=== PATIENT | female | born 1960 | race Caucasian/White ===

== ENCOUNTER 2017-12-31 12:25 | Outpatient (CLI) | payer OTHER ==
[2017-12-31 14:38] LABS: Hemoglobin 11.9 g/dL (12.0-16.0); Mean Corpuscular HGB CONC 33.5 g/dL (32.0-36.0); Mean Corpuscular Hemoglobin 28.2 pg (27.0-31.0); Mean Corpuscular Volume 84.2 fl (81.0-99.0); Mean Platelet Volume 7.5 fL (7.4-10.4); Platelet Count 314 thou/uL (130-400); Red Blood Cell (RBC) Count 4.22 mill/uL (4.20-5.40)
[2017-12-31 14:58] LABS: Anion Gap 13 mmol/L (10-20); BUN (Urea Nitrogen) 23 mg/dL (9.8-20.1); Calc. Creatinine Clearance 0 mL/min (70-130); Calcium 8.9 mg/dL (7.8-10.44); Carbon Dioxide 25 mmol/L (22-29); Chloride 100 mmol/L (98-107); Estimated GFR-MDRD 33; Glucose 347 mg/dL (70-105); Potassium 4.4 mmol/L (3.5-5.1); Sodium 134 mmol/L (136-145)
--- NOTE | 2017-12-31 20:07 | EKG ---
Test Reason : Blood Pressure : / mmHG Vent. Rate : 087 BPM Atrial Rate : 087 BPM P-R Int : 156 ms QRS Dur : 092 ms QT Int : 386 ms P-R-T Axes : 071 -15 102 degrees QTc Int : 464 ms Normal sinus rhythm Inferior infarct (cited on or before 31-DEC-2017) Possible Anterior infarct , age undetermined Abnormal ECG When compared with ECG of 11-AUG-2016 14:53, Borderline criteria for Anterior infarct are now Present Confirmed by MIKE LYONS, DR. Sheikh ([id number]) on 12/31/2017 8:06:49 PM Referred By: REUBEN Confirmed By:DR. Kori MCKEON MD
== END 2017-12-31 12:26 | disposition home or self-care (01) ==
LOC: LABBT 12:25
PROVIDERS: ATTEND Obstetrics & Gynecology
DX: Z01.812 Encounter for preprocedural laboratory examination (principal); A63.0 Anogenital (venereal) warts
CPT/HCPCS: 80048; 85027; 86850; 86900; 86901; 93005; 93010

== ENCOUNTER 2018-01-16 12:50 | Emergency (ER) | payer OTHER | END 2018-01-16 13:34 | disposition left against medical advice (07) | LOC: ERS 12:50 | DX: Z53.21 Procedure and treatment not carried out due to patient leaving prior to being seen by health care provider (principal) ==

== ENCOUNTER 2018-01-22 01:10 | Emergency (ER) | payer OTHER ==
[2018-01-22 01:54] LABS: #Basophils 0.1 thou/uL (0.0-0.2); #Eosinphils 0.2 thou/uL (0.0-0.7); #Lymphocytes 2.3 thou/uL (1.20-3.40); #Monocytes 0.9 thou/uL (0.11-0.59); #Neutrophils 8.3 thou/uL (1.40-6.50); %Basophils 0.6 % (0.0-1.0); %Eosinophils 1.8 % (0.0-10.0); %Lymphocytes 19.3 % (21.0-51.0); %Monocytes 7.2 % (0.0-10.0); %Neutrophils 71.1 % (42.0-75.0); Hemoglobin 12.1 g/dL (12.0-16.0); Mean Corpuscular Hemoglobin 28.6 pg (27.0-31.0); Mean Corpuscular Volume 84.2 fl (81.0-99.0); Mean Platelet Volume 7.2 fL (7.4-10.4); Platelet Count 314 thou/uL (130-400); Red Blood Cell (RBC) Count 4.21 mill/uL (4.20-5.40); White Blood Cell (WBC) Count 11.7 thou/uL (4.8-10.8)
[2018-01-22 02:12] LABS: ALT (SGPT) 9 U/L (8-55); AST (SGOT) 8 U/L (5-34); Albumin 3.3 g/dL (3.5-5.0); Alkaline Phosphatase 133 U/L (40-150); Anion Gap 10 mmol/L (10-20); BUN (Urea Nitrogen) 32 mg/dL (9.8-20.1); Bilirubin, Total 0.2 mg/dL (0.2-1.2); Calc. Creatinine Clearance 0 mL/min (70-130); Calcium 9.3 mg/dL (7.8-10.44); Carbon Dioxide 27 mmol/L (22-29); Chloride 101 mmol/L (98-107); Estimated GFR-MDRD 41; Globulin 3.5 g/dL (2.4-3.5); Glucose 329 mg/dL (70-105); Potassium 4.4 mmol/L (3.5-5.1); Protein, Total 6.8 g/dL (6.0-8.3); Sodium 134 mmol/L (136-145)
[2018-01-22 04:34] LABS: CKMB 2.4 ng/mL (0-6.6); Troponin I Less than 0.010 ng/mL (< 0.028)
[2018-01-22] MEDS ORDERED: HYDROcodone/Acetaminophen 5/325 mg Tablet ONE (05:04)
[2018-01-22] MEDS ORDERED: Methocarbamol 500 MG TAB PO SCH (05:15)
== END 2018-01-22 05:56 | disposition home or self-care (01) ==
LOC: ERS 01:10
DX: E11.65 Type 2 diabetes mellitus with hyperglycemia (principal); E11.40 Type 2 diabetes mellitus with diabetic neuropathy, unspecified; K58.9 Irritable bowel syndrome, unspecified; E78.5 Hyperlipidemia, unspecified; I10 Essential (primary) hypertension; J44.9 Chronic obstructive pulmonary disease, unspecified; F41.9 Anxiety disorder, unspecified; F32.9 Major depressive disorder, single episode, unspecified; F17.210 Nicotine dependence, cigarettes, uncomplicated; Z79.4 Long term (current) use of insulin; Z79.891 Long term (current) use of opiate analgesic; Z79.899 Other long term (current) drug therapy
CPT/HCPCS: 36415; 36416; 80053; 82010; 82553; 84484; 85025; 85610; 85730; 93005; 96360; 96361; 99406

== ENCOUNTER 2018-01-22 15:10 | Outpatient (CLI) | payer OTHER ==
[2018-01-22 16:39] LABS: PTT 32.6 SEC (22.9-36.1); Prothrombin Time 13.6 SEC (12.0-14.7)
[2018-01-22 17:02] LABS: ALT (SGPT) 8 U/L (8-55); AST (SGOT) 9 U/L (5-34); Albumin 3.2 g/dL (3.5-5.0); Alkaline Phosphatase 116 U/L (40-150); Anion Gap 11 mmol/L (10-20); BUN (Urea Nitrogen) 24 mg/dL (9.8-20.1); Bilirubin, Total 0.2 mg/dL (0.2-1.2); Calc. Creatinine Clearance 0 mL/min (70-130); Calcium 8.9 mg/dL (7.8-10.44); Carbon Dioxide 24 mmol/L (22-29); Chloride 105 mmol/L (98-107); Estimated GFR-MDRD 58; Globulin 3.4 g/dL (2.4-3.5); Glucose 105 mg/dL (70-105); Potassium 4.1 mmol/L (3.5-5.1); Protein, Total 6.6 g/dL (6.0-8.3); Sodium 136 mmol/L (136-145)
== END 2018-01-22 15:11 | disposition home or self-care (01) ==
LOC: LABBT 15:10
PROVIDERS: ATTEND Internal Medicine Cardiovascular Disease
DX: Z01.818 Encounter for other preprocedural examination (principal); R94.39 Abnormal result of other cardiovascular function study
CPT/HCPCS: 85610; 85730

== ENCOUNTER 2018-01-23 05:50 | Day surgery (SDC) | payer OTHER ==
[2018-01-23] MEDS ORDERED: diphenhydrAMINE 50 MG/ML VIAL ONE (06:31)
[2018-01-23] MEDS ORDERED: diphenhydrAMINE 25 MG CAP ONE ×2 (06:32→06:33)
[2018-01-23] MEDS ORDERED: Lidocaine 1% (PF) 30 ML VIAL ONE (06:33)
[2018-01-23 06:51] LABS: Cardiac Risk 7.1 (Less than 4.5)
[2018-01-23] MEDS ORDERED: Midazolam HCl 2 mg/2 ml Vial ONE ×2 (07:09→07:29)
[2018-01-23] MEDS ORDERED: hydrALAZINE 20 MG/ML VIAL ONE (07:29)
[2018-01-23] MEDS ORDERED: Acetaminophen/Codeine 30-300mg Tablet ONE ×2 (08:21→08:22)
[2018-01-23] MEDS ORDERED: Iopamidol 370 76% 100 ML VIAL ONE (08:51)
--- NOTE | 2018-01-23 10:08 | DIS ---
INDICATION: She was seen in the outpatient facility today to undergo cardiac catheterization. DIAGNOSES: Include coronary artery disease, status post bypass surgery; history of tobacco abuse; hi story of chronic pain syndrome; history of hypertension. DISCHARGE DIAGNOSES: Include coronary artery disease, status post bypass surgery; history of tobacco abuse; history of chronic pain syndrome; history of hypertension. PROCEDURES IN THE HOSPITAL: Included cardiac catheterization, left ventriculogram, coronary arteriog nathaniel, saphenous vein graft evaluation, HERRERA graft evaluation. Followup will be with me in the office or my nurse practitioner in the next 1-2 months. She will con tinue her discharge medications, which will include nitroglycerin as a new p.r.n. medication, subling ual tablets 1 every 5 minutes p.r.n. for pain, cyclobenzaprine 10 mg t.i.d., Tylenol with Codeine as needed, Protonix 20 mg daily, Lexapro 20 mg a half a tablet a day, Levemir 100 units per mL subcutane ous 35 units b.i.d., and Novolin 100 units per mL subcutaneous injections as indicated by the blood s ugar, Tylenol as needed, albuterol sulfate inhaler 2 puffs every 4 hours as well as Proventil 2 puffs b.i.d., Fosamax 70 mg once a week, aspirin 81 mg a day, Flexeril as needed. We will also consider Deon roth due to her diffuse coronary artery disease. She will continue her aspirin at this time. She i s not on statin medications. I will discuss this also with the patient as to why she is no longer ta ernie statins. We would suggest she take at least Lipitor or some medication due to severe vascular d isease. Also, she was highly encouraged to stop smoking. HOSPITAL COURSE: This is a very unfortunate 57-year-old female, who has smoked for many years and morillo s undergone bypass surgery in 2015. She presented again with chest pain. Stress test was abnormal. She was advised to undergo cardiac catheterization. She was taken to cardiac catheterization lab, p repped and draped in sterile fashion, using right femoral artery approach, and a #4-Indonesian introducer sheath was placed into the right femoral artery using #4 Indonesian JL4 catheter was advanced to the lef t main. Coronary shows a left main retrieving significant disease. Left anterior descending was 100 % occluded after takeoff of a diagonal branch. The left circumflex is also occluded just shortly aft er takeoff from the bifurcation. The catheter was then removed. There is actually a very small OM b ranch that arises from the circumflex and then is 100% occluded. This obtuse marginal branch is less than 1 mm in diameter. Catheter was then removed and was placed into the [place] right coronary, whi ch shows proximal 75% stenosis just beyond the ostium and then 100% occluded just after the takeoff o f a small right ventricular branch. The catheter was then placed into the saphenous vein graft to th e left circumflex, obtuse marginal branch. This remains patent. There is no evidence of stenosis in the saphenous vein graft. There is filling of the distal obtuse marginal branch without evidence of stenosis distally. There was also fills retrograde backed up into the distal left circumflex. Thes e vessels are less than 2 mm in diameter. The catheter was then removed and was placed into the left internal mammary artery, which shows a patent left internal mammary into the very distal left anteri or descending artery, just beyond the anastomotic site. The left anterior descending artery has diff use disease and has a 50% stenosis just at the anastomotic site and shortened for about 8 mm in lengt h and also the left anterior descending artery fills retrograde slightly and then is 100% occluded. The vessel is less than 1 mm in diameter. There are some very small septal branches that arise from the distal left anterior descending artery that are also filling by this retrograde filling of the LI MA to the left anterior descending artery and capped. Then, using a multipurpose catheter was advanc ed to the ostium of the saphenous vein graft to the right coronary, which shows a patent saphenous ve in graft without stenosis to the distal posterior descending artery of the right coronary artery. Th is shows a patent posterior descending artery; however, this is also less than 2 mm in diameter. Cat heter was then removed, and using a 4-Indonesian pigtail catheter, this had been advanced to the left leanne tricle. This shows a well-preserved left ventricular systolic function. Ejection fraction was more than 70%-75%. This was then removed. The patient tolerated the procedure well. She did require ev te a bit of Versed 4 mg and also 4 mg of morphine and still continued to have some discomfort, compla ining of back pain. Otherwise, she did very well during the procedure, and her blood pressure remain s stable. At this time, we will continue medical management. The vessels are too small to intervene upon as noted in this dictation. She was strongly encouraged to stop smoking. Otherwise, there is very little that can be done with the small vessels even in the future. She is probably not a candid ate for redo bypass surgery nor is she a candidate for intervention at this time. We will continue m edical management in this unfortunate patient. If she remains stable, she will be discharged home in the next 4-5 hours.
== END 2018-01-23 11:06 | disposition home or self-care (01) ==
LOC: CCL 05:50
PROVIDERS: ATTEND Internal Medicine Cardiovascular Disease
PROC: B2131ZZ Fluoroscopy of Multiple Coronary Artery Bypass Grafts using Low Osmolar Contrast (ICD-10-PCS; principal; 2018-01-23)
PROC: 4A023N7 Measurement of Cardiac Sampling and Pressure, Left Heart, Percutaneous Approach (ICD-10-PCS; principal; 2018-01-23)
DX: I25.10 Atherosclerotic heart disease of native coronary artery without angina pectoris (principal); G89.4 Chronic pain syndrome; I10 Essential (primary) hypertension; E11.9 Type 2 diabetes mellitus without complications; H54.7 Unspecified visual loss; Z79.4 Long term (current) use of insulin; Z79.82 Long term (current) use of aspirin; Z79.83 Long term (current) use of bisphosphonates; Z79.899 Other long term (current) drug therapy; Z91.041 Radiographic dye allergy status; Z88.5 Allergy status to narcotic agent; Z91.048 Other nonmedicinal substance allergy status; Z95.1 Presence of aortocoronary bypass graft; Z87.891 Personal history of nicotine dependence
CPT/HCPCS: 36416; 80061; 93459; 99152; 99153; C1769; J0360; J1200; J1644; J2001; J2250; J2270

== ENCOUNTER 2018-02-18 15:51 | Outpatient (CLI) | payer OTHER ==
[2018-02-18 17:06] LABS: Hemoglobin 11.3 g/dL (12.0-16.0); Mean Corpuscular HGB CONC 33.1 g/dL (32.0-36.0); Mean Corpuscular Hemoglobin 28.5 pg (27.0-31.0); Mean Corpuscular Volume 86.1 fl (81.0-99.0); Mean Platelet Volume 7.1 fL (7.4-10.4); Platelet Count 302 thou/uL (130-400); RBC Distribution Width 15.3 % (11.5-14.5); Red Blood Cell (RBC) Count 3.95 mill/uL (4.20-5.40); White Blood Cell (WBC) Count 8.7 thou/uL (4.8-10.8)
== END 2018-02-18 15:52 | disposition home or self-care (01) ==
LOC: LABBT 15:51
PROVIDERS: ATTEND Obstetrics & Gynecology
DX: Z01.812 Encounter for preprocedural laboratory examination (principal); A63.0 Anogenital (venereal) warts
CPT/HCPCS: 85027

== ENCOUNTER 2018-02-19 08:00 | Day surgery (SDC) | payer OTHER ==
[2018-02-18 16:11] VITALS: BMI 28.3
--- NOTE | 2018-02-18 16:55 | HP ---
She is scheduled for outpatient surgery on 02/19/2018. HISTORY OF PRESENT ILLNESS: Ms. Vera is a 57-year-old white female with a long history of insulin- dependent diabetes with subsequent complications including blindness and coronary artery disease and has been plagued with significant vulvar condyloma. She has been initiated on Aldara therapy, which has helped with the smaller condylomatous regions, but still has some very large ones in the perineal areas that have not responded well to the Aldara therapy. These become irritated and painful at keegan es. She does not have home health that has been helping her to apply the Aldara as directed, but sti ll has significant condylomatous disease in the perineal area. PAST MEDICAL HISTORY: Longstanding insulin-dependent diabetes. The patient has been cardiac cleara nce recently with her casino manager, Dr. Day PAST SURGICAL HISTORY: Tubal ligation and cardiac catheterization. OBSTETRICAL HISTORY: G7, P4, A3, all vaginal deliveries. SOCIAL HISTORY: One-pack per day smoker. Denies alcohol use. She is disabled from her blindness an d chronic diabetes. ALLERGIES: No known drug allergies. FAMILY HISTORY: Significant for hyperlipidemia in her mother and father and diabetes in her mother a nd father. CURRENT MEDICATIONS: Aldara and Levemir for her diabetes. PHYSICAL EXAMINATION: VITAL SIGNS: Show blood pressure was 114/60, pulse 90, respirations 18, height 63 inches, weight 164 , BMI of 29. ABDOMINAL EXAM: Abdomen is soft and nontender. PELVIC EXAM: There is a large condyloma noted in the perineal area small to least condylomatous taylor ges in the posterior introitus that are nonfriable. No ulcerations noted. ASSESSMENT: Complicated vulvar condyloma, minimal responsiveness to Aldara therapy, insulin-dependen t diabetes. PLAN: Scheduled for excision of the large condyloma and to continue on Aldara to smaller perineal ar eas after surgery in hopes to control the recurrence of these HPV-associated Viral Warts. We will se nd the biopsy specimens off for pathology to rule out any verrucous carcinoma changes. Surgery is sc heduled for 02/19/2018.
[2018-02-19] MEDS ORDERED: CEFAZOLIN/Water 2 GM/20 ML SYRINGE ONE (09:12)
[2018-02-19] MEDS ORDERED: Lidocaine 2% Jelly 5 ML TUBE ONE (09:27)
[2018-02-19] MEDS ORDERED: Bupivacaine/Epinephrine 0.25% 30 ML VIAL ONE (09:27)
[2018-02-19] MEDS ORDERED: Fentanyl 100 MCG/2 ML VIAL ONE ×2 (09:33→11:28)
[2018-02-19] MEDS ORDERED: Midazolam HCl 2 mg/2 ml Vial ONE ×2 (09:33→09:42)
[2018-02-19] MEDS ORDERED: Ondansetron HCl/PF 4 MG/2 ML Vial ONE ×2 (09:33→13:42)
[2018-02-19] MEDS ORDERED: Bupivacaine HCl 0.5%/Epinephrine 1:200,000/PF 30 ml Vial ONE (09:34)
[2018-02-19] MEDS ORDERED: Lidocaine 1% w/Epinephrine 1:200K 30 ML VIAL ONE (09:35)
[2018-02-19] MEDS ORDERED: Bacitracin Zinc Ointment 30 gm TUBE ONE (10:47)
[2018-02-19] MEDS ORDERED: Acetaminophen/Codeine 30-300mg Tablet ONE (12:12)
[2018-02-19] MEDS ORDERED: Lidocaine 1% PF 5 ML VIAL ONE (13:42)
[2018-02-19] MEDS ORDERED: PROPOFOL 200 MG/20 ML VIAL ONE (13:42)
[2018-02-19] MEDS ORDERED: PHENYLEPHRINE-NS 100 MCG/ML 10 ML SYRINGE ONE (13:42)
--- NOTE | 2018-02-19 19:19 | OP ---
DATE OF PROCEDURE: 02/19/2018 PREOPERATIVE DIAGNOSIS: A 57-year-old white female with longstanding insulin-dependent diabetic with large cervical condyloma of the perineum unresponsive to Aldara therapy. POSTOPERATIVE DIAGNOSIS: A 57-year-old white female with longstanding insulin-dependent diabetic wit h large cervical condyloma of the perineum unresponsive to Aldara therapy. PROCEDURE PERFORMED: Wide local excision of multiple large verruca. SURGEON: Ligia Nichole M.D. ANESTHESIA: General and local anesthetic. FINDINGS: Multiple condylomatous lesions that were most predominantly a large one at 7:00, 10:00, 12 :00, and 01:00 of the perineum. No intraanal involvement noted. Minimal smaller condyloma noted in the vaginal introitus, which were cautery ablated. PATHOLOGY: Each specimen sent labeled 7:00, 10:00, 12:00 and 1:00 position for pathologic diagnosis. DISPOSITION: To recovery room, then plan to discharge home. Ancef was given for antibiotics. DESCRIPTION OF OPERATIVE PROCEDURE: The patient previously received informed consent. She was taken back to the operating room where she received a general endotracheal anesthetic agent clear. She wa s placed in dorsal lithotomy position with use of Moo stirrups and prepped in perineal, vaginal and vulvar area. In and out catheterization of the bladder was performed about 20 mL of clear urine wit h good strain. At this time, 20 mL of 0.5% Marcaine with epinephrine was infiltrated under condyloma tous lesions. The 07:00 condyloma lesion was then grasped with pickups with teeth. Then, #15 blade was utilized to make an elliptical excision, skinning off the verruca lesion and sent for final patho logy. The area was cauterized at the base and any surrounding small condyloma were cauterized with 2 30 estes of Bovie cautery. The defect was closed with interrupted [id number] sutures of 2-0 Josh ryl and then interrupted bvzpaz-[id number] suture of Vicryl was then utilized to close the perineal tis paulo defect securing hemostasis. This was then repeated in likewise fashion at the 11:00 verrucous le martha and was again excised and cauterized for some hemostasis and the deep stitches of interrupted 2- 0 Vicryl were placed closing the tissue defect along with mucosal closure with interrupted figure-of- eight sutures of 2-0 Vicryl. A 12:00 verruca was also removed in similar fashion and closed in simil ar technique. Hemostasis again was achieved. The 1 o'clock verruca was then again excised with 15 b lade cauterizing the base and then closed the deep tissue stitches with interrupted 2-0 Vicryl and th en interrupted 2-0 Vicryl figure-of-8 sutures for the mucosal closure. Any areas of small condylomat ous that were cauterized with minimal need for this after the larger verruca masses were removed. He mostasis was achieved. A rectal exam was performed. There was no evidence of any suture placement w ithin this area and the perianal area was not involved with the suture ligation. Bacitracin zinc oin tment will be placed over the incision sites. The patient was awakened from anesthesia and transferr ed to the recovery room and plan for discharge today with follow up in 7-10 days for incision checks.
--- NOTE | 2018-03-28 09:07 | PQF ---
MOHAMUD Muller [place] POST DISCHARGE CLINICAL DOCUMENTATION IMPROVEMENT CLARIFICATION FORM Todays Date: 02/26/18 Patients Name CECILIA MARTINEZ Admit Date 02/19/18 Disch Date 02/19/18 Associate Professor Of Forestry Name RUBENISABELA MORRISANUELLE BORJAS Email: [email or web address] Cell: [phone] Present Clinical Indicators - Signs / Symptoms Results and Location in Medical Record [ ] Documentation of: [ ] [ ] Documentation of: [ ] [ ] Documentation of: [ ] [ ] Documentation of: [ ] [ ] Risks [ ] [ ] [ ] Treatment [ ] Perineal lesion excision, condyloma/ squamous carcinoma Please specify the size of the lesion with the margin excised in the operative report [ ] [ ] Dr. Ligia Nichole The documentation in this patients record requires clarification to ensure coding compliance and accuracy. Check the appropriate box and include in your discharge summary. [ ] [ ] [ ] [ ] Please check this box if this does not apply to this patient [ ] Unable to determine [ ] Other diagnosis: Review the following information and exercise your independent professional judgment in responding to the clarification. Based upon the clinical findings, risk factors, and treatment, please clarify if you are treating one of the above probable or suspected diagnoses. Physician Signature: Date Time MTDD
== END 2018-02-19 13:16 | disposition home or self-care (01) ==
LOC: SDC 08:00
PROVIDERS: ATTEND Obstetrics & Gynecology
DX: C44.520 Squamous cell carcinoma of anal skin (principal); A63.0 Anogenital (venereal) warts; I25.10 Atherosclerotic heart disease of native coronary artery without angina pectoris; E10.39 Type 1 diabetes mellitus with other diabetic ophthalmic complication; H54.7 Unspecified visual loss; F17.210 Nicotine dependence, cigarettes, uncomplicated; Z79.899 Other long term (current) drug therapy; Z88.5 Allergy status to narcotic agent; Z91.041 Radiographic dye allergy status
CPT/HCPCS: 36416; 85027; 88305; J0670; J2001; J2250; J2405; J2704; J3010

== ENCOUNTER 2018-02-26 16:27 | Inpatient (IN) | payer OTHER ==
[2018-02-26] MEDS ORDERED: Morphine 5 MG/ML SYRINGE SLOW IVP PRN (17:41)
[2018-02-26] MEDS ORDERED: Acetaminophen 500 MG TAB PO PRN (17:42)
[2018-02-26] MEDS: Morphine 5 MG/ML SYRINGE SLOW IVP PRN ×2 (17:45→20:25)
[2018-02-26 17:53] LABS: Anisocytosis SLIGHT = 6-15 cells (100X) (0-5/hpf); Eosinophils 2 % (0-10); Hemoglobin 11.1 g/dL (12.0-16.0); Lymphocytes 21 % (21-51); MDiff Complete? YES; Mean Corpuscular HGB CONC 33.3 g/dL (32.0-36.0); Mean Corpuscular Hemoglobin 28.2 pg (27.0-31.0); Mean Corpuscular Volume 84.5 fl (81.0-99.0); Mean Platelet Volume 7.6 fL (7.4-10.4); Monocytes 5 % (0-10); Neutrophil 72 % (42-75); PLT Morphology Comment Appears Adequate; Platelet Count 252 thou/uL (130-400); RBC Distribution Width 15.4 % (11.5-14.5); Red Blood Cell (RBC) Count 3.95 mill/uL (4.20-5.40); White Blood Cell (WBC) Count 9.1 thou/uL (4.8-10.8)
[2018-02-26 17:56] LABS: ALT (SGPT) 9 U/L (8-55); AST (SGOT) 16 U/L (5-34); Alkaline Phosphatase 126 U/L (40-150); Anion Gap 10 mmol/L (10-20); BUN (Urea Nitrogen) 30 mg/dL (9.8-20.1); Bilirubin, Total 0.2 mg/dL (0.2-1.2); Calc. Creatinine Clearance 54 mL/min (70-130); Calcium 8.6 mg/dL (7.8-10.44); Carbon Dioxide 25 mmol/L (22-29); Chloride 105 mmol/L (98-107); Estimated GFR-MDRD 40; Globulin 3.5 g/dL (2.4-3.5); Glucose 200 mg/dL (70-105); Potassium 4.6 mmol/L (3.5-5.1); Protein, Total 6.5 g/dL (6.0-8.3); Sodium 135 mmol/L (136-145)
[2018-02-26] MEDS ORDERED: Acetaminophen/Codeine 30-300mg Tablet PO PRN (18:29)
[2018-02-26] MEDS ORDERED: PROVENTIL INHALER 6.7 G (200 INHALATIONS) INH PRN (18:30)
[2018-02-26] MEDS: Piperacillin/Tazobactam 3.375 GM in Sodium Chloride 0.9% 100 ML IVPB SCH (18:46)
[2018-02-26] MEDS ORDERED: HumaLOG 300 UNITS/3 ML VIAL SC PRN (20:04)
[2018-02-26] MEDS: Gabapentin 300 MG CAP PO SCH (20:24)
[2018-02-26] MEDS: Bupropion 150 MG SR TAB PO SCH (20:24)
[2018-02-26] MEDS: hydrOXYzine 25 MG TAB PO SCH (20:31)
[2018-02-26] MEDS: Acetaminophen/Codeine 30-300mg Tablet PO PRN (20:31)
[2018-02-26] MEDS: Insulin Glargine 40 UNITS in Pre-Filled Syringe SC SCH (20:33)
[2018-02-26] MEDS: Clindamycin/D5W 900 MG in Premix Bag 1 BAG IVPB SCH (20:42)
[2018-02-26] MEDS: Atorvastatin Calcium 10 MG TAB PO SCH (20:42)
--- NOTE | 2018-02-26 22:12 | HP ---
CHIEF COMPLAINT: She is being admitted for vulvar cellulitis, status post partial lobectomy for vulv ar dysplasia and condyloma. HISTORY OF PRESENT ILLNESS: Ms. Vera is a 57-year-old white female with longstanding history of in sulin-dependent diabetes with secondary complications including blindness and coronary artery disease . She is also a tobacco smoker for a long time. She was recently treated with excision of a large c ondyloma of the perineum approximately postop day #7 with wide local excisions of the vulvar lesions. Pathology showed some microscopic invasion and a large condyloma at 7 and 10 o'clock on the perineu m and then high-grade dysplasia with positive margins with residual disease noted also at 12 and 1 o' clock. The patient has been at home and has been using as recommended sitz baths and Dermoplast for pain and Tylenol No. 3. She was reporting increasing perineal pain over the past 2 days. There is somewhat question on her ability to care for herself due to her blindness and whether the sitz baths have been adequate. For the increasing pain, she was seen in my office today. She states that Tylenol No. 3 is not helping, it is difficult for her to walk due to the pain. She is also reporting more increase d hyperglycemia regards to her insulin control. PAST SURGICAL HISTORY: Multiple D&Cs, tubal ligation in 1989, cholecystectomy in 1996, oral surgerie s, basal cell carcinoma removed from the nose, triple bypass CABG [place] [address] Lee. She has also had a recent coronary artery catheterization procedure preop in December of this year by Dr. Day and w as cleared for recent surgery. PAST MEDICAL HISTORY: A long-term insulin-dependent diabetes, hypertension, 100% blindness from glau coma in 2012, fibromyalgia, osteoporosis, multiple back fractures, depression, and neuropathy. CURRENT MEDICATIONS: Bupropion SR 150 mg b.i.d., atorvastatin 10 mg daily, gabapentin 300 mg at nigh t, Tylenol No. 3, atropine 1% eyedrops to bilateral eyes nightly, pantoprazole [address] 40 mg every morning, lisinopril 20 mg q.a.m., cyclobenzaprine 10 mg at night, Proventil MDI 2 puffs every 4 hours as needed, NovoLog FlexPen up to 10 units on sliding scale, Levemir 40 units morning and night. ALLERGIES: She reports no current allergies. SOCIAL HISTORY: She is a long-term smoker. She is unemployed due to her disability. FAMILY HISTORY: Colon cancer in the family. Hyperlipidemia in mother and father. Diabetes in memo r and brother. Hypertension in her mother. PHYSICAL EXAMINATION: VITAL SIGNS: Blood pressure 132/62, pulse 94, respirations 16, temperature 98.8, height 63 inches, w eight 166 pounds with a BMI 29.4. ABDOMEN: Soft and nondistended. PERINEAL EXAM: She has sutures intact. In the perineal area, there is 4 areas of the incision sites with Vicryl in place. There is a kind of a purulent exudate over the 7 and 10 o'clock area. There is some erythema with some woodiness over this area. VAGINAL EXAM: There was no fluctuance expressed from the site, but tenderness was notable. ASSESSMENT: This is a 57-year-old white female with insulin-dependent diabetes with a recent high gr rivera vulvar dysplasia noted with a large condylomatous removal on postop day #7. On condyloma in 7 an d 10 o'clock did show some microscopic invasion of squamous cell carcinoma and there is persistent hi gh grade vulvar dysplasia noted at the margins. Patient now with what appears to be a cellulitis wit h significant tenderness and pain over the incision sites. PLAN: To admit the patient. We will initiate IV Zosyn and clindamycin antibiotic coverage. We will also have her do sitz baths t.i.d. and maximize the cleaning and wound care in this area. Pain cont rol with IV morphine and we will also request the [facility] to treat her diabetes.
[2018-02-27] MEDS: Atropine Sulfate 1% Ophth Soln 5 ml Bottle EA EYE SCH ×2 (00:41→21:29)
[2018-02-27] MEDS: Milk Of Magnesia 30 ML UDCUP PO SCH ×2 (00:41→21:28)
[2018-02-27] MEDS: Docusate Calcium (SURFAK) 240 MG CAP PO SCH ×2 (00:41→21:28)
[2018-02-27] MEDS: Piperacillin/Tazobactam 3.375 GM in Sodium Chloride 0.9% 100 ML IVPB SCH ×4 (00:44→18:19)
[2018-02-27] MEDS: Morphine 5 MG/ML SYRINGE SLOW IVP PRN (00:49)
[2018-02-27] MEDS: Clindamycin/D5W 900 MG in Premix Bag 1 BAG IVPB SCH ×3 (04:10→21:25)
[2018-02-27] MEDS ORDERED: Dextrose 50% Abboject 50 ML SYRINGE SLOW IVP PRN (05:08)
[2018-02-27] MEDS ORDERED: Dextrose 5% in Water 1,000 ML IV PRN (05:08)
[2018-02-27] MEDS ORDERED: HumaLOG 300 UNITS/3 ML VIAL SC PRN (05:08)
--- NOTE | 2018-02-27 05:21 | PDOC.PN ---
- Subjective Encounter Start Date: 02/27/18 Encounter Start Time: 05:00 Subjective: awake, blind, no sob or chest pain or palp - Objective MAR Reviewed: Yes Vital Signs & Weight: Vital Signs (12 hours) Temp Pulse Resp BP Pulse Ox 02/27/18 04:10 97.7 F 18 169/74 H 02/26/18 20:35 98.5 F 88 20 155/68 H 96 Weight Weight 162 lb 5.714 oz Result Diagrams: 02/26/18 17:23 02/26/18 17:23 Additional Labs: Accuchecks 02/26/18 17:23 POC Glucose 200 H Phys Exam - Physical Examination HEENT: moist MMs, sclera anicteric has dense cataracts in both eyes Neck: no JVD, supple, full ROM Respiratory: no wheezing, no rales Cardiovascular: RRR, no significant murmur Gastrointestinal: soft, non-tender, no distention, positive bowel sounds Musculoskeletal: no edema, pulses present Neurological: non-focal, moves all 4 limbs Psychiatric: normal affect, A&O x 3 Dx/Plan (1) DM type 2 (diabetes mellitus, type 2) Status: Chronic Qualifiers: Diabetes mellitus chcf insulin use: with watermelon inspector use Diabetes mellitus complication status: with hyperglycemia Qualified Code(s): E11.65 - Type 2 diabetes mellitus with hyperglycemia; Z79.4 - computer terminal operator (current) use of insulin; Z79.4 - computer terminal operator (current) use of insulin; Z79.4 - computer terminal operator (current ) use of insulin; Z79.4 - computer terminal operator (current) use of insulin (2) Vulvar cellulitis Code(s): N76.2 - ACUTE VULVITIS Status: Acute (3) HTN (hypertension) Code(s): I10 - ESSENTIAL (PRIMARY) HYPERTENSION Status: Chronic Qualifiers: Hypertension type: essential hypertension Qualified Code(s): I10 - Essential (primary) hypertension (4) Dyslipidemia Code(s): E78.5 - HYPERLIPIDEMIA, UNSPECIFIED Status: Chronic (5) Blindness of both eyes Code(s): H54.3 - UNQUALIFIED VISUAL LOSS, BOTH EYES Status: Chronic - Plan continue levemir 40u bid with coverage achs and bedtime -: to continue asp, lipitor, lisinopril and gabapentin -: bupropion for depression -: is on zosyn and clindamycin for cellulitis -: will f/u, watch for renal function, gentle iv hydration x 2lts * . Review of Systems - Medications/Allergies Allergies/Adverse Reactions: Allergies Allergy/AdvReac Type Severity Reaction Status Date / Time codeine Allergy REBOUND Verified 02/18/18 16:12 HEADACHES hydrocodone Allergy Verified 02/18/18 16:12 hydrocodone bitartrate Allergy Verified 02/18/18 16:12 [From Vicodin] iodine Allergy Verified 02/18/18 16:12 morphine Allergy REBOUND Verified 02/18/18 16:12 HEADACHES povidone-iodine Allergy Verified 02/18/18 16:12 [From Betadine] soap [From Betadine] Allergy Verified 02/18/18 16:12 zolpidem tartrate Allergy Verified 02/18/18 16:12 [From Ambien] Medications: Current Medications Acetaminophen (Tylenol) 1,000 mg PO Q6H PRN PRN Reason: Headache/Fever or Pain Acetaminophen/Codeine Phosphate (Tylenol #3) 1 tab PO Q6H PRN PRN Reason: Pain 1-5 Acetaminophen/Codeine Phosphate (Tylenol #3) 2 tab PO Q6H PRN PRN Reason: Pain 6-10 Last Admin: 02/26/18 20:31 Dose: 2 tab Albuterol Sulfate (Proventil Hfa) 2 puff INH Q4H PRN PRN Reason: . Alendronate Sodium (Fosamax) 70 mg PO Fr@0600 [facility] Aspirin (Aspirin Chewable) 81 mg PO DAILY [facility] Atorvastatin Calcium (Lipitor) 10 mg PO HS [facility] Last Admin: 02/26/18 20:42 Dose: 10 mg Atropine Sulfate (Atropine 1% Ophth Soln) 1 drop EA EYE HS [facility] Last Admin: 02/27/18 00:41 Dose: Not Given Bupropion HCl (Wellbutrin Sr) 150 mg PO BID [facility] Last Admin: 02/26/18 20:24 Dose: 150 mg Cyclobenzaprine HCl (Flexeril) 10 mg PO TIDPRN PRN PRN Reason: Muscle Spasm Dextrose/Water (Dextrose 50%) 25 gm SLOW IVP PRN PRN PRN Reason: Hypoglycemia Docusate Calcium (Surfak) 480 mg PO [facility] Last Admin: 02/27/18 00:41 Dose: Not Given Gabapentin (Neurontin) 300 mg PO HS [facility] Last Admin: 02/26/18 20:24 Dose: 300 mg Glucagon (Glucagon) 1 mg IM PRN PRN PRN Reason: Hypoglycemia Hydroxyzine HCl (Atarax) 25 mg PO HS [facility] Last Admin: 02/26/18 20:31 Dose: 25 mg Clindamycin Phosphate/Dextrose (900 mg/ Device) 50 mls @ 100 mls/hr IVPB 0400, 1200,2000 [facility] Last Admin: 02/27/18 04:10 Dose: 50 mls Piperacillin Sod/Tazobactam (Sod 3.375 gm/ Sodium Chloride) 100 mls @ 200 mls/ hr IVPB Q6HR [facility] Last Admin: 02/27/18 00:44 Dose: 100 mls Insulin Glargine 40 units/ (Miscellaneous Medication) 0.4 mls @ 0 mls/hr SC BID [facility] Last Admin: 02/26/18 20:33 Dose: 0.4 mls Dextrose/Water (D5w) 1,000 mls @ 0 mls/hr IV .Q0M PRN; As Directed PRN Reason: Hypoglycemia Insulin Human Lispro (Humalog) 0 units SC .MODERATE SLIDING SC PRN PRN Reason: Moderate Correctional Scale Insulin Human Lispro (Humalog) 0 units SC .BEDTIME SLIDING SC PRN PRN Reason: Bedtime Correctional Scale Lisinopril (Zestril) 20 mg PO DAILY [facility] Magnesium Hydroxide (Milk Of Magnesium) 30 ml PO [facility] Last Admin: 02/27/18 00:41 Dose: Not Given Morphine Sulfate (Morphine) 2 mg SLOW IVP Q2H PRN PRN Reason: PAIN 1ST LINE Morphine Sulfate (Morphine) 4 mg SLOW IVP Q2H PRN PRN Reason: PAIN 2ND LINE Last Admin: 02/27/18 00:49 Dose: 4 mg Pantoprazole Sodium (Protonix) 40 mg PO DAILY [facility]
[2018-02-27] MEDS: Sodium Chloride 0.9% 1,000 ML IV SCH ×2 (05:52→21:28)
[2018-02-27 06:53] LABS: Hemoglobin A1c 9.2 % (4.0-6.0)
[2018-02-27] MEDS: Acetaminophen/Codeine 30-300mg Tablet PO PRN ×2 (07:45→13:46)
[2018-02-27] MEDS: Lisinopril 20 MG TAB PO SCH (07:45)
[2018-02-27] MEDS: Bupropion 150 MG SR TAB PO SCH ×2 (07:45→21:27)
--- NOTE | 2018-02-27 07:53 | PDOC.EVN ---
Event Note - Event Note Event Note: Feeling better. Less pain. O: afebrule. vss. acucheck 165 WBC 9.1 on admit. perineum intact. less erythema A/P vulvar cellulitis post op. iddm continue zosyn/clindamycing today. local wound care. diabetes control. possible d/c 02/28
[2018-02-27] MEDS ORDERED: HumaLOG 300 UNITS/3 ML VIAL SC SCH (08:00)
[2018-02-27] MEDS: Insulin Glargine 40 UNITS in Pre-Filled Syringe SC SCH ×2 (09:07→21:26)
[2018-02-27 09:12] LABS: Anion Gap 10 mmol/L (10-20); BUN (Urea Nitrogen) 22 mg/dL (9.8-20.1); Calc. Creatinine Clearance 63 mL/min (70-130); Calcium 8.7 mg/dL (7.8-10.44); Carbon Dioxide 24 mmol/L (22-29); Chloride 105 mmol/L (98-107); Estimated GFR-MDRD 48; Glucose 173 mg/dL (70-105); Potassium 4.2 mmol/L (3.5-5.1); Sodium 135 mmol/L (136-145)
--- NOTE | 2018-02-27 11:22 | ULT ---
BILATERAL RENAL ULTRASOUND: HISTORY: [id number] renal failure. FINDINGS: The right kidney measures 14.6 cm in length, and the left kidney measures 14.4 cm in length. There i s a 2 cm cyst in the superior pole of the left kidney and a 1 cm cyst in the inferior aspect of the l eft kidney. No hydronephrosis is seen on either side. Cortical echogenicity and thickness are kimberly l. Urinary bladder volume is 170 mL. The urinary bladder is grossly unremarkable. IMPRESSION: Bilateral renal cysts. POS: ROSA
[2018-02-27] MEDS: HumaLOG 300 UNITS/3 ML VIAL SC PRN ×2 (13:14→18:19)
[2018-02-27 13:16] LABS: Creatinine, Urine 28.72 mg/dL (47-110)
[2018-02-27] MEDS: Cyclobenzaprine 10 MG TAB PO PRN (13:50)
--- NOTE | 2018-02-27 13:52 | PDOC.PN ---
- Subjective Encounter Start Date: 02/27/18 Encounter Start Time: 13:50 Patient seen and examined, no new issues or complaints. All questions answered. - Objective Vital Signs & Weight: Vital Signs (12 hours) Temp Pulse Resp BP Pulse Ox 02/27/18 11:39 97.7 F 73 20 172/73 H 02/27/18 08:01 97.7 F 75 16 178/76 H 96 02/27/18 08:00 97.7 F 75 16 02/27/18 04:10 97.7 F 18 169/74 H Weight Weight 162 lb 5.714 oz Result Diagrams: 02/26/18 17:23 02/27/18 08:27 Additional Labs: Accuchecks 02/27/18 02/27/18 02/26/18 12:36 05:56 17:23 POC Glucose 197 H 165 H 200 H Phys Exam - Physical Examination Constitutional: NAD overweight HEENT: moist MMs, sclera anicteric visually impaired Neck: no nodes, no JVD, supple Respiratory: no wheezing, no rales, no rhonchi Cardiovascular: RRR, no significant murmur, no rub Gastrointestinal: soft, non-tender, no distention, positive bowel sounds Musculoskeletal: pulses present, edema present (trace) Neurological: non-focal, normal sensation Psychiatric: normal affect, A&O x 3 Skin: no rash, normal turgor Dx/Plan (1) Vulvar cellulitis Code(s): N76.2 - ACUTE VULVITIS Status: Acute (2) Blindness of both eyes Code(s): H54.3 - UNQUALIFIED VISUAL LOSS, BOTH EYES Status: Chronic (3) DM type 2 (diabetes mellitus, type 2) Status: Chronic Qualifiers: Diabetes mellitus computer terminal operator insulin use: with computer terminal operator use Diabetes mellitus complication status: with hyperglycemia Qualified Code(s): E11.65 - Type 2 diabetes mellitus with hyperglycemia; Z79.4 - termite technician (current) use of insulin; Z79.4 - termite technician (current) use of insulin; Z79.4 - termite technician (current ) use of insulin; Z79.4 - [facility] (current) use of insulin (4) Dyslipidemia Code(s): E78.5 - HYPERLIPIDEMIA, UNSPECIFIED Status: Chronic (5) HTN (hypertension) Code(s): I10 - ESSENTIAL (PRIMARY) HYPERTENSION Status: Chronic Qualifiers: Hypertension type: essential hypertension Qualified Code(s): I10 - Essential (primary) hypertension - Plan * BP stable * BS GLU acceptable, will adjust meal time insulin, patient states she takes novolog 10units TID AC, will provide meal time insulin for now * cont abx * will follow and make adjustments from a medical perspective as appropriate * case an dplan d/w patient at length, she understands and agrees with this plan
[2018-02-27] MEDS: HumaLOG 300 UNITS/3 ML VIAL SC SCH ×2 (15:22→21:46)
[2018-02-27] MEDS: Atorvastatin Calcium 10 MG TAB PO SCH (21:27)
[2018-02-27] MEDS: hydrOXYzine 25 MG TAB PO SCH (21:27)
[2018-02-27] MEDS: Gabapentin 300 MG CAP PO SCH (21:27)
[2018-02-28] MEDS: Acetaminophen/Codeine 30-300mg Tablet PO PRN ×3 (01:23→13:09)
[2018-02-28] MEDS: Piperacillin/Tazobactam 3.375 GM in Sodium Chloride 0.9% 100 ML IVPB SCH ×3 (01:24→12:20)
[2018-02-28] MEDS: Cyclobenzaprine 10 MG TAB PO PRN ×2 (01:27→08:18)
[2018-02-28] MEDS: Clindamycin/D5W 900 MG in Premix Bag 1 BAG IVPB SCH (04:10)
[2018-02-28 06:09] LABS: Anion Gap 12 mmol/L (10-20); BUN (Urea Nitrogen) 20 mg/dL (9.8-20.1); Calc. Creatinine Clearance 73 mL/min (70-130); Calcium 8.7 mg/dL (7.8-10.44); Carbon Dioxide 24 mmol/L (22-29); Chloride 104 mmol/L (98-107); Estimated GFR-MDRD 57; Glucose 179 mg/dL (70-105); Potassium 4.6 mmol/L (3.5-5.1); Sodium 135 mmol/L (136-145)
[2018-02-28] MEDS: HumaLOG 300 UNITS/3 ML VIAL SC PRN (06:13)
--- NOTE | 2018-02-28 08:09 | PDOC.EVN ---
Event Note - Event Note Event Note: Feels much better. Perineal pain significantly improved. O: afebrile VSS perineal area examined. erythema resoled. Minimal tenderness. Suture lines intact. A/P: vulvar cellulitis clinically much improved..Remains afebrile and exam significantly better. Plan is for discharge home today. Rx for clindamycin 300 mg bid for 7 more days. Tylenol #3 for pain. To continue pericare at home with sitz baths. tid. F/ u in one week...
[2018-02-28] MEDS: Lisinopril 20 MG TAB PO SCH (08:18)
[2018-02-28] MEDS: Bupropion 150 MG SR TAB PO SCH (08:18)
[2018-02-28] MEDS: HumaLOG 300 UNITS/3 ML VIAL SC SCH (08:31)
[2018-02-28] MEDS: Insulin Glargine 40 UNITS in Pre-Filled Syringe SC SCH (08:32)
[2018-02-28 12:15] VITALS: BP 170/79; TEMP 97.3
[2018-02-28] MEDS: Sodium Chloride 0.9% 1,000 ML IV SCH (12:19)
--- NOTE | 2018-02-28 13:32 | PDOC.PN ---
- Subjective Encounter Start Date: 02/28/18 Encounter Start Time: 11:00 Patient seen and examined, no new issues or complaints. - Objective Vital Signs & Weight: Vital Signs (12 hours) Temp Pulse Resp BP Pulse Ox 02/28/18 12:00 97.3 F L 81 18 170/79 H 02/28/18 08:20 97.3 F L 81 18 02/28/18 07:55 98.3 F 90 16 170/69 H 98 02/28/18 04:15 97.4 F L 78 20 181/79 H 02/28/18 01:38 97.1 F L 80 18 193/81 H Weight Weight 162 lb 5.714 oz I&O: 02/27/18 02/28/18 03/01/18 06:59 06:59 06:59 Intake Total 1530 Output Total 1999 Balance -470 Result Diagrams: 02/26/18 17:23 02/28/18 05:26 Additional Labs: Accuchecks 02/28/18 02/28/18 02/27/18 12:15 06:12 21:36 POC Glucose 131 H 178 H 198 H 02/27/18 17:40 POC Glucose 230 H Phys Exam - Physical Examination Constitutional: NAD HEENT: moist MMs, sclera anicteric, oral pharynx no lesions visually impaired Neck: no nodes, no JVD, supple Respiratory: no wheezing, no rales, no rhonchi Cardiovascular: RRR, no significant murmur, no rub Gastrointestinal: soft, non-tender, no distention, positive bowel sounds Musculoskeletal: no edema, pulses present Neurological: non-focal, normal sensation Psychiatric: normal affect, A&O x 3 Dx/Plan (1) Vulvar cellulitis Code(s): N76.2 - ACUTE VULVITIS Status: Acute (2) Blindness of both eyes Code(s): H54.3 - UNQUALIFIED VISUAL LOSS, BOTH EYES Status: Chronic (3) DM type 2 (diabetes mellitus, type 2) Status: Chronic Qualifiers: Diabetes mellitus jail insulin use: with noodle press operator use Diabetes mellitus complication status: with hyperglycemia Qualified Code(s): E11.65 - Type 2 diabetes mellitus with hyperglycemia; Z79.4 - long-term (current) use of insulin; Z79.4 - long-term (current) use of insulin; Z79.4 - bilingual sales assistant (current ) use of insulin; Z79.4 - long-term (current) use of insulin (4) Dyslipidemia Code(s): E78.5 - HYPERLIPIDEMIA, UNSPECIFIED Status: Chronic (5) HTN (hypertension) Code(s): I10 - ESSENTIAL (PRIMARY) HYPERTENSION Status: Chronic Qualifiers: Hypertension type: essential hypertension Qualified Code(s): I10 - Essential (primary) hypertension - Plan * normal renal US * patient has 0.14g/24hrs proteinuria, no NONI already * target good BS GLU control out patient * no other changes in plan for now * cleared from medical perspective for discharge, will need to follow up out patient with PCP in 2-3 weeks for further management and care
--- NOTE | 2018-02-28 22:07 | DIS ---
DATE OF ADMISSION: 02/26/2018 DATE OF DISCHARGE: 02/28/2018 DIAGNOSES: 1. Vulvar cellulitis. 2. Postop infection. 3. 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 4. Insulin-dependent diabetes. 5. Blindness. 6. Chronic hypertension. 7. Smoker/tobacco user. 8. Fibromyalgia. SUMMARY OF HOSPITAL COURSE: Ms. Vera is a 57-year-old white female with multiple medical problems who had recently undergone wide local excision of condylomatous perineal lesions approximately 7 days prior to admission. She was admitted on postop day #7 for increasing perineal pain in regards to us e of Tylenol No.3. She is also having some difficulty in wound management due to her blindness issue s. She was admitted and initiated on antibiotic therapy for vulvar cellulitis and the perineal incision sites with Zosyn and clindamycin. Admission white count was noted to be normal at 9 and she remained afebrile throughout her hospital course. [facility] her diabetes and hypertension during this hospital stay, which was adequately stabilized. She received Sitz bath t.i.d. and IV antibiotic therapy and initially IV morphine for pain control. Then, she was switched to p.o. Gate and eventually she was tolerating Tylenol No.3 for her perineal discomfort . On hospital day #2, the patient's pain had significantly improved. She was ambulating without difficulty now and the wound appeared much improved. There is minimal cellulitis changes no wil and therefore, plan is to discharge her home with clindamycin 300 mg p.o. b.i.d. for 7 more days. She is to continue to have perineal care 3 times a day. She is to resume her usual medications for maintenance of her hypertension and also her diabetes. I will follow the patient in 1 week for woun d check and then eventually we planned for referral to a litigator approximately a month for [facility] management recommendations in regard to the high-grade dysplasia that has positive margins in the area. She is aware of this possibility and we will discuss this again at her next followup visit.
[2018-03-01] MEDS ORDERED: Alendronate Sodium 70 mg Tablet PO SCH (06:00)
== END 2018-02-28 13:20 | disposition home or self-care (01) | DRG 863 ==
LOC: 3SE 16:27
PROVIDERS: ADMIT Obstetrics & Gynecology; ATTEND Obstetrics & Gynecology
DX: T81.4XXA Infection following a procedure, initial encounter (principal); N76.2 Acute vulvitis; Z87.412 Personal history of vulvar dysplasia; E11.39 Type 2 diabetes mellitus with other diabetic ophthalmic complication; E11.40 Type 2 diabetes mellitus with diabetic neuropathy, unspecified; I25.10 Atherosclerotic heart disease of native coronary artery without angina pectoris; R79.89 Other specified abnormal findings of blood chemistry; I10 Essential (primary) hypertension; H40.9 Unspecified glaucoma; H54.3 Unqualified visual loss, both eyes; M79.7 Fibromyalgia; F17.210 Nicotine dependence, cigarettes, uncomplicated; F32.9 Major depressive disorder, single episode, unspecified; Z79.4 Long term (current) use of insulin; Z95.1 Presence of aortocoronary bypass graft; Y83.8 Other surgical procedures as the cause of abnormal reaction of the patient, or of later complication, without mention of misadventure at the time of the procedure
CPT/HCPCS: 36415; 36416; 76770; 80048; 80053; 82570; 83036; 84156; 85007; 85027; J2270; J2543; J3490; J7050

== ENCOUNTER 2018-03-19 13:00 | Outpatient (CLI) | payer OTHER | END 2018-03-19 13:01 | disposition home or self-care (01) | LOC: BICRAD 13:00 | PROVIDERS: ATTEND Family Medicine | DX: M25.552 Pain in left hip (principal); M25.551 Pain in right hip ==

== ENCOUNTER 2018-05-09 12:39 | Outpatient (CLI) | payer OTHER ==
--- NOTE | 2018-05-09 13:45 | RAD ---
CHEST ONE VIEW: History: Atherosclerotic heart disease of [place] coronary arteries without angiogram. I25.1 Comparison: None. FINDINGS: Heart size is mildly enlarged. There are midline sternotomy wires. No acute focal airspace consolidat ion, pneumothorax or effusion. No acute osseous abnormality. IMPRESSION: No acute intrathoracic abnormality. POS: [facility]
== END 2018-05-09 12:40 | disposition home or self-care (01) ==
LOC: RAD 12:39
PROVIDERS: ATTEND Nurse Practitioner
DX: I25.10 Atherosclerotic heart disease of native coronary artery without angina pectoris (principal); Z98.61 Coronary angioplasty status
CPT/HCPCS: 71045

== ENCOUNTER 2018-05-25 15:03 | Emergency (ER) | payer OTHER ==
[2018-05-25 15:47] LABS: #Eosinphils 0.1 thou/uL (0.0-0.7); #Monocytes 0.6 thou/uL (0.11-0.59); #Neutrophils 6.6 thou/uL (1.40-6.50); %Basophils 0.5 % (0.0-1.0); %Eosinophils 1.6 % (0.0-10.0); %Monocytes 7.1 % (0.0-10.0); %Neutrophils 78.8 % (42.0-75.0); Hemoglobin 11.4 g/dL (12.0-16.0); Mean Corpuscular Hemoglobin 28.8 pg (27.0-31.0); Mean Corpuscular Volume 84.7 fL (78.0-98.0); Mean Platelet Volume 7.2 fL (7.4-10.4); Platelet Count 253 thou/uL (130-400); RBC Distribution Width 14.8 % (11.5-14.5); Red Blood Cell (RBC) Count 3.96 mill/uL (4.20-5.40); White Blood Cell (WBC) Count 8.4 thou/uL (4.8-10.8)
[2018-05-25 16:05] LABS: ALT (SGPT) 10 U/L (8-55); AST (SGOT) 12 U/L (5-34); Albumin 3.3 g/dL (3.5-5.0); Alkaline Phosphatase 138 U/L (40-150); Anion Gap 7 mmol/L (10-20); BUN (Urea Nitrogen) 21 mg/dL (9.8-20.1); Bilirubin, Total 0.4 mg/dL (0.2-1.2); Calc. Creatinine Clearance 0 mL/min (70-130); Calcium 9.1 mg/dL (7.8-10.44); Carbon Dioxide 27 mmol/L (22-29); Chloride 104 mmol/L (98-107); Estimated GFR-MDRD 37; Globulin 3.2 g/dL (2.4-3.5); Glucose 263 mg/dL (70-105); Potassium 4.1 mmol/L (3.5-5.1); Protein, Total 6.5 g/dL (6.0-8.3); Sodium 134 mmol/L (136-145)
[2018-05-25] MEDS ORDERED: Ondansetron HCl/PF 4 MG/2 ML Vial ONE (16:34)
[2018-05-25] MEDS ORDERED: Dicyclomine 20 MG TAB ONE (16:34)
--- NOTE | 2018-05-25 16:36 | RAD ---
FRONTAL AND LATERAL IMAGING CHEST: 05/25/18 COMPARISON: 04/22/15 HISTORY: Cough. FINDINGS: midline sternotomy wires and mediastinal clips are present. No pneumothorax, pleural fluid, focal co nsolidation, or alveolar edema. The heart and mediastinal contours are stable. Osseous structures demonstrate age indeterminate mild anterior wedge compression fracture of T11. IMPRESSION: Age indeterminate anterior wedge compression fracture of T11, new. No radiographic evidence of acute cardiopulmonary disease. POS: [facility]
[2018-05-25 17:07] LABS: Troponin I Less than 0.010 ng/mL (< 0.028)
[2018-05-25 18:11] LABS: Bilirubin Negative (Negative); Blood, Urine Small (Negative); Clarity CLOUDY (Clear); Glucose, Urine (Dipstick) 250 mg/dL (Negative); Leukocyte Small (Negative); Nitrite Negative (Negative); Protein, Urine (Dipstick) 100 mg/dL (Neg-Trace); Specific Gravity, Urine 1.009 (1.002-1.036); Urobilinogen 0.2 mg/dL (0.2-1.0)
[2018-05-25 18:12] LABS: Bacteria/HPF Rare-Few HPF (None Seen); Hyaline Casts/LPF 0-3 HYALINE CAST LPF (0-3 Hyaline); Pathc Cast-AUWi Flag 0.29 (0-2.49)
[2018-05-25 18:13] LABS: Yeast-AUWi Flag 91.8 (0-25.0)
[2018-05-25 18:22] LABS: RBC/HPF 0-3 HPF (0-3)
[2018-05-25 18:23] LABS: Yeast-All Forms None Seen HPF (None Seen)
== END 2018-05-25 18:50 | disposition home or self-care (01) ==
LOC: ERS 15:03
DX: R19.7 Diarrhea, unspecified (principal); D63.1 Anemia in chronic kidney disease; J44.9 Chronic obstructive pulmonary disease, unspecified; N39.0 Urinary tract infection, site not specified; I12.9 Hypertensive chronic kidney disease with stage 1 through stage 4 chronic kidney disease, or unspecified chronic kidney disease; N18.9 Chronic kidney disease, unspecified; E11.65 Type 2 diabetes mellitus with hyperglycemia; E78.5 Hyperlipidemia, unspecified; E78.1 Pure hyperglyceridemia; E11.40 Type 2 diabetes mellitus with diabetic neuropathy, unspecified; G62.9 Polyneuropathy, unspecified; F41.9 Anxiety disorder, unspecified; F32.9 Major depressive disorder, single episode, unspecified; F17.210 Nicotine dependence, cigarettes, uncomplicated; Z71.6 Tobacco abuse counseling; Z79.899 Other long term (current) drug therapy; Z79.82 Long term (current) use of aspirin; Z79.891 Long term (current) use of opiate analgesic
CPT/HCPCS: 36415; 71046; 80053; 81003; 81015; 83690; 84484; 85025; 87086; 93005; 94640; 96361; 96374; 99406; J2405; J7620

== ENCOUNTER 2018-07-21 20:44 | Emergency (ER) | payer OTHER ==
[2018-07-21] MEDS ORDERED: Morphine 4 MG/ML VIAL ONE (21:11)
[2018-07-21 21:35] LABS: #Basophils 0.1 thou/uL (0.0-0.2); #Eosinphils 0.2 thou/uL (0.0-0.7); #Lymphocytes 1.1 thou/uL (1.20-3.40); #Monocytes 0.5 thou/uL (0.11-0.59); #Neutrophils 6.7 thou/uL (1.40-6.50); %Basophils 0.6 % (0.0-1.0); %Lymphocytes 13.1 % (21.0-51.0); %Monocytes 6.2 % (0.0-10.0); %Neutrophils 78.1 % (42.0-75.0); Hemoglobin 12.4 g/dL (12.0-16.0); Mean Corpuscular HGB CONC 32.8 g/dL (32.0-36.0); Mean Corpuscular Hemoglobin 27.7 pg (27.0-31.0); Mean Corpuscular Volume 84.3 fL (78.0-98.0); Mean Platelet Volume 7.3 fL (7.4-10.4); Platelet Count 300 thou/uL (130-400); RBC Distribution Width 14.6 % (11.5-14.5); Red Blood Cell (RBC) Count 4.46 mill/uL (4.20-5.40); White Blood Cell (WBC) Count 8.5 thou/uL (4.8-10.8)
[2018-07-21] MEDS ORDERED: Fentanyl 100 MCG/2 ML VIAL ONE (21:37)
[2018-07-21 21:51] LABS: ALT (SGPT) 9 U/L (8-55); AST (SGOT) 9 U/L (5-34); Albumin 3.3 g/dL (3.5-5.0); Alkaline Phosphatase 109 U/L (40-150); Anion Gap 12 mmol/L (10-20); BUN (Urea Nitrogen) 22 mg/dL (9.8-20.1); Bilirubin, Total 0.4 mg/dL (0.2-1.2); Calc. Creatinine Clearance 0 mL/min (70-130); Carbon Dioxide 23 mmol/L (22-29); Chloride 106 mmol/L (98-107); Estimated GFR-MDRD 52; Globulin 3.5 g/dL (2.4-3.5); Glucose 187 mg/dL (70-105); Lipase Less than 4 U/L (8-78); Protein, Total 6.8 g/dL (6.0-8.3); Sodium 137 mmol/L (136-145)
--- NOTE | 2018-07-21 22:02 | CT ---
CT ABDOMEN AND PELVIS: 07/21/2018 HISTORY: Pain. Recent surgery to the vulva on Sunday. COMPARISON: None. TECHNIQUE: Serial axial CT imaging is obtained at 5 mm intervals, from the lung bases through the pubic symphysi s, without contrast. Coronal reformatted imaging obtained. FINDINGS: The lack of contrast limits assessment of the viscera, bowel, and vascular structures and for lymphad enopathy. The visualized lung bases appear unremarkable. No free intraperitoneal air or fluid is seen. The gallbladder is surgically absent. The liver, spleen, pancreas, and adrenal glands are unremarkable. Evaluation of the bowel is limited without contrast media and demonstrates no evidence for obstructio n or inflammatory change. The appendix is visualized and appears within normal limits. There are multiple punctate calcifications seen within both kidneys, which suggests a combination of nonobstructing punctate renal calculi and arterial calcifications. No evidence for obstructive uropa thy is appreciated on either side. Of note, the urinary bladder extends below the axial level of the pubic symphysis, suggesting a degre e of pelvic relaxation/cystocele. Clinical correlation is required. No abdominal or pelvic abscess is noted, within the limitations of a noncontrast enhanced examination. The vascular structures are not well assessed but demonstrate scattered atherosclerotic calcification of the abdominal aorta and its branches. No acute osseous abnormality noted. Multilevel lower lumbar spine facet hypertrophic change seen. There is an age indeterminate mild anterior wedge compression fracture involving the T11 vertebral subha dy. IMPRESSION: 1. No evidence for free intraperitoneal air or bowel obstruction. 2. The urinary bladder floor extends below the axial level of the pubic symphysis, which may signify pelvic relaxation/cystocele, in the proper clinical setting. 3. Age indeterminate mild anterior wedge compression fracture of T11. 4. Atherosclerotic disease. 5. Numerous punctate calcifications within the bilateral kidneys, as detailed above. POS: [facility]
[2018-07-21] MEDS ORDERED: Ampicillin/Sulbactam 1.5 GM in Sodium Chloride 0.9% 100 ML IVPB SCH (23:15)
[2018-07-21] MEDS ORDERED: HYDROcodone/Acetaminophen 7.5/325 mg Tablet ONE (23:15)
[2018-07-21 23:42] LABS: Bilirubin Negative (Negative); Blood, Urine Small (Negative); Clarity CLEAR (Clear); Glucose, Urine (Dipstick) 250 mg/dL (Negative); Leukocyte Negative (Negative); Nitrite Negative (Negative); Protein, Urine (Dipstick) 300 mg/dL (Neg-Trace); Specific Gravity, Urine 1.014 (1.002-1.036); Urobilinogen 0.2 mg/dL (0.2-1.0); pH, Urine 6.5 (5.0-9.0)
[2018-07-21 23:44] LABS: Bacteria/HPF Rare-Few HPF (None Seen); Hyaline Casts/LPF 0-3 HYALINE CAST LPF (0-3 Hyaline); Pathc Cast-AUWi Flag 0.58 (0-2.49); Squamous Epithelial 0-3 HPF (0-3); WBC/HPF 21-50 HPF (0-3)
== END 2018-07-22 01:02 | disposition home or self-care (01) ==
LOC: ERS 20:44
DX: G89.18 Other acute postprocedural pain (principal); N76.2 Acute vulvitis; E11.9 Type 2 diabetes mellitus without complications; E78.2 Mixed hyperlipidemia; I10 Essential (primary) hypertension; E11.42 Type 2 diabetes mellitus with diabetic polyneuropathy; J44.9 Chronic obstructive pulmonary disease, unspecified; F41.9 Anxiety disorder, unspecified; F32.9 Major depressive disorder, single episode, unspecified; F17.210 Nicotine dependence, cigarettes, uncomplicated; Z79.4 Long term (current) use of insulin; Z79.899 Other long term (current) drug therapy
CPT/HCPCS: 36415; 74176; 80053; 81003; 81015; 83605; 83690; 85025; 87040; 87086; 96361; 96365; 96375; J0295; J2270; J3010; J7050

== ENCOUNTER 2019-11-17 14:36 | Outpatient (CLI) | payer OTHER ==
--- NOTE | 2019-11-17 15:34 | RAD ---
RADIOGRAPH RIGHT ANKLE 3 VIEWS: DATE: 11/17/2019 HISTORY: 59-year-old female with persistent posttraumatic ankle pain after fall last week. FINDINGS: Ankle mortise is congruent. There is no evidence of fracture. There is no subluxation or dislocation. Diffuse soft tissue edema. IMPRESSION: 1. No fracture. 2. Diffuse soft tissue edema. 3. Osteopenia.
--- NOTE | 2019-11-17 15:36 | RAD ---
RADIOGRAPH RIGHT KNEE 3VIEWS: DATE: 11/17/2019 HISTORY: 59-year-old female with persistent posttraumatic right knee pain after fall last week. FINDINGS: There is no evidence of fracture or dislocation. There is no evidence of periostitis, permeative lesi on, osteolytic lesion, or osteoblastic lesion. The joint spaces are maintained without erosions or significant osteophytes. No large joint effusion. Osteopenia. IMPRESSION: No fracture.
--- NOTE | 2019-11-17 15:38 | RAD ---
RADIOGRAPH RIGHT FOOT 3VIEWS: DATE: 11/17/2019 HISTORY: 59-year-old female with persistent posttraumatic right foot pain after fall one week ago. FINDINGS: There is no dislocation. No acute fracture is identified. There is sclerosis, mild deformity, and sli ght expansion of the diaphysis of the first proximal phalanx. There is sclerosis and focal angulation at the neck of the fourth proximal phalanx. There is diffuse osteopenia. IMPRESSION: 1. No acute fracture. 2. Old healed fracture deformities of first proximal phalanx and fourth proximal phalanx.
== END 2019-11-17 14:37 | disposition home or self-care (01) ==
LOC: BICRAD 14:36
PROVIDERS: ATTEND Family Medicine
DX: M25.571 Pain in right ankle and joints of right foot (principal); M25.561 Pain in right knee; M21.6X1 Other acquired deformities of right foot; R60.0 Localized edema; M85.871 Other specified disorders of bone density and structure, right ankle and foot; Z87.81 Personal history of (healed) traumatic fracture

== ENCOUNTER 2019-11-21 05:23 | Outpatient (CLI) | payer OTHER ==
[2019-11-21 13:01] LABS: #Eosinphils 0.2 thou/uL (0.0-0.7); #Lymphocytes 1.4 thou/uL (1.20-3.40); #Monocytes 0.6 thou/uL (0.11-0.59); #Neutrophils 6.6 thou/uL (1.40-6.50); %Basophils 0.4 % (0.0-1.0); %Eosinophils 2.8 % (0.0-10.0); %Monocytes 6.2 % (0.0-10.0); %Neutrophils 74.6 % (42.0-75.0); Mean Corpuscular HGB CONC 32.5 g/dL (32.0-36.0); Mean Corpuscular Hemoglobin 27.7 pg (27.0-31.0); Mean Corpuscular Volume 85.2 fL (78.0-98.0); Mean Platelet Volume 8.2 fL (7.4-10.4); Platelet Count 272 thou/uL (130-400); RBC Distribution Width 15.9 % (11.5-14.5); Red Blood Cell (RBC) Count 3.63 mill/uL (4.20-5.40); White Blood Cell (WBC) Count 8.9 thou/uL (4.8-10.8)
[2019-11-21 13:33] LABS: ALT (SGPT) 16 U/L (8-55); AST (SGOT) 12 U/L (5-34); Albumin 3.6 g/dL (3.5-5.0); Alkaline Phosphatase 110 U/L (40-110); Anion Gap 13 mmol/L (10-20); BUN (Urea Nitrogen) 36 mg/dL (9.8-20.1); Bilirubin, Total 0.4 mg/dL (0.2-1.2); Calc. Creatinine Clearance 0 mL/min (70-130); Carbon Dioxide 28 mmol/L (22-29); Chloride 102 mmol/L (98-107); Estimated GFR-MDRD 41; Glucose 188 mg/dL (70-105); Potassium 5.1 mmol/L (3.5-5.1); Protein, Total 6.6 g/dL (6.0-8.3); Sodium 138 mmol/L (136-145)
--- NOTE | 2019-11-21 13:40 | RAD ---
2 VIEWS CHEST: Date: 11/21/2019 COMPARISON: 05/25/18. HISTORY: Preoperative radiograph. FINDINGS: 2 views of the chest show normal sized cardiomediastinal silhouette. The patient is status post ring otomy. There is no evidence of consolidation, mass, or pleural effusion. A stable wedge-compression f racture is seen in the lower thoracic spine. IMPRESSION: No evidence of acute cardiopulmonary disease. POS: [facility]
== END 2019-11-21 05:24 | disposition home or self-care (01) ==
LOC: LABBT 05:23
PROVIDERS: ATTEND Internal Medicine Cardiovascular Disease
DX: Z01.818 Encounter for other preprocedural examination (principal)
CPT/HCPCS: 71046; 80053; 85025; 93005; 93010

== ENCOUNTER 2019-11-25 05:58 | Day surgery (SDC) | payer OTHER ==
[2019-11-21 10:58] VITALS: BMI 37.3
[2019-11-25] MEDS ORDERED: Heparin (Artline) 1,000 ML ONE (06:35)
[2019-11-25] MEDS ORDERED: Lidocaine 1% (PF) 30 ML VIAL ONE ×3 (06:35→09:12)
[2019-11-25] MEDS ORDERED: Heparin (Artline) 500 ML ONE ×4 (08:16→10:56)
[2019-11-25] MEDS ORDERED: Midazolam HCl 2 mg/2 ml Vial ONE ×4 (08:24→10:39)
[2019-11-25] MEDS ORDERED: Fentanyl 100 MCG/2 ML VIAL ONE ×2 (08:24→12:21)
[2019-11-25] MEDS ORDERED: hydrALAZINE 20 MG/ML VIAL ONE (08:28)
[2019-11-25] MEDS ORDERED: Morphine 2 MG/ML SYRINGE ONE ×2 (08:33→10:28)
[2019-11-25] MEDS ORDERED: Heparin 10,000 UNITS/1 ML VIAL ONE (09:34)
[2019-11-25] MEDS ORDERED: Iopamidol 370 76% 100 ML VIAL ONE (10:32)
[2019-11-25] MEDS ORDERED: Iopamidol 370 76% 50 ML VIAL FS ONE (10:32)
[2019-11-25] MEDS ORDERED: Clopidogrel Bisulfate 300 MG TAB ONE (10:39)
[2019-11-25] MEDS ORDERED: Morphine 4 MG/ML VIAL ONE (14:33)
--- NOTE | 2019-11-25 18:36 | CCL ---
DATE: 11/25/19 INDICATION FOR PROCEDURE: 59-year-old female with a history of diabetes. Hypertension, tobacco abuse, found to have significant peripheral vascular disease with claudication symptoms. She underwent arterial evaluation which showed evidence of significant lower extremity peripheral vascular disease. She was advised to undergo a distal aortogram with runoff to the lower extremities. She was taken to the Cardiac Catheterization Lab where she prepped and draped in the sterile fashion. Using a right femoral artery approach, a #5 [place] introducer sheath was placed into the right femoral artery using a #5 contra catheter and advanced to the distal aorta. Images were obtained. Did not show any significant disease in the common iliacs. The right external iliac had what appeared to be a 50% stenosis. The left external iliac was free of any significant disease. The bilateral common femoral arteries did not show any significant stenosis. The left superficial femoral, the contra catheter was then directed down the left external iliac. Images were obtained. This shows severe stenosis involving the left superficial femoral artery from the proximal to distal area and serial lesions of 9 to 95%. The patient was complaining more of left pain and left hip pain and the catheter was then pulled back and the sheath injection performed looking at the right superficial femoral artery as well as the external iliac. He external iliac was noted to have a significant degree of gradient across the area which was thought to be 50%. The gradient was approximately 40mm gradient. Further down in the superficial femoral artery from the proximal to distal area is evidence of serial lesions again to be 90% stenosis with diffuse plaque formation. Then it was opted since she was having more symptoms on the right side, we opted to make another approach on the left common femoral artery using a #5 [place] introducer placed and this was exchanged out for a 6 [place] long sheath, destination sheath. This was crossed over the aorta using a Wholey wire and down to the external iliac. Gradient was then noted from the common iliac across the external iliac stenosis. The catheter was then pulled back and then using the Wholey wire, we were able to advance this down the distal superficial femoral artery on the right side and then using a 4-0 x 150 mm Lutoinix drug coated balloon, the stenotic area in the mid to distal superficial femoral artery was dilated. There was no evidence of residual stenosis in pullback and no inflation using the same balloon in the more proximal superficial femoral artery. This again was dilated up to maximum pressure to an intraluminal diameter of 4 mm in the vessel. The catheter was then removed. Then using the same long sheath after we had pulled this back a little bit, using a 6-0 x 37 mm express balloon expandable stent, this was passed across the stenotic area in the right external iliac and was dilated up to a maximum pressure of 6.1 mm in the vessel. There was no evidence of residual stenosis and no evidence of gradient again across this area. The catheters were then removed. The sheaths were sewn into place. The patient did require significant amount of morphine, versed, fentanyl, for the procedure just for pain relief to her back but did tolerate the procedure well. Blood pressure remained stable throughout the procedure as she was monitored by an independent observer for heart rate, blood pressure and O2 saturation throughout the conscious sedation. IMPRESSION: Severe bilateral superficial femoral artery stenosis but more symptoms involving the right lower extremity which may have been due to the significant stenosis noted in the right external iliac as well. Severe stenosis noted in the right superficial femoral artery. Final injections did show that there was decreased flow down the right posterior tibial artery but with reconstitution with retrograde filling of the posterior tibial artery. The initial images did not indicate this. There was patent flow down the PT but a 50% stenosis in the proximal area. It is possible that either vasospasm or small plaque or debris has gone into the right posterior tibial artery in the proximal area. This may resolve itself but there is good collateral filling in both vessels at the ankle with retrograde filling from the left anterior tibial artery. There was no stenosis noted in the right anterior tibial artery all the way down to the foot. GANESH
--- NOTE | 2019-11-26 02:27 | DIS ---
DATE OF ADMISSION: 11/25/2019 DATE OF DISCHARGE: 11/25/2019 ADMITTING DIAGNOSES: 1. Peripheral vascular disease. 2. Coronary artery disease. 3. History of hypertension. 4. Hyperlipidemia. 5. Chronic obstructive pulmonary disease. Insulin-dependent diabetes. 6. History of tobacco abuse. 7. Anxiety. 8. Status post bypass surgery in 2014. DISCHARGE DIAGNOSES: 1. Peripheral vascular disease. 2. Coronary artery disease. 3. History of hypertension. 4. Hyperlipidemia. 5. Chronic obstructive pulmonary disease. Insulin-dependent diabetes. 6. History of tobacco abuse. 7. Anxiety. 8. Status post bypass surgery in 2014. PROCEDURE IN HOSPITAL: Included: 1. Distal aortogram with runoff to lower extremities with selective injections of the left external iliac and sheath injection of the right common femoral artery with contralateral LINE INSTALLER, percutaneous angioplasty to the right superficial femoral artery from the proximal to distal area down beyond Kadeem's canal almost into the proximal popliteal artery. 2. Primary stent placement to the right external iliac. 3. She was also given conscious sedation. Procedure in the hospital was as noted. DISCHARGE MEDICATIONS: Include: 1. Atropine 1 mg as directed for injections. 2. Alendronate sodium 70 mg once a week. 3. NovoLog insulin 100 units/mL. She injects t.i.d. as prescribed based on her blood sugars. 4. Lipitor 40 mg daily. 5. Aspirin 81 mg daily. 6. Coreg 3.125 mg b.i.d. 7. Duloxetine HCL 30 mg 1 twice daily. Buspirone HCL 10 mg twice daily. 8. Gabapentin 600 mg 3 times daily. 9. Furosemide 40 mg daily. 10. Spiriva Hand-Held inhaler 18 mcg capsules once daily. 11. Ventolin inhaler every 6 hours as needed. 12. Melatonin 10 mg as needed. 13. Victoza 18 mg/3 mL solution as directed. Tylenol with codeine p.r.n. Omeprazole 40 mg tablets once daily. 14. Toujeo Solostar 300 units/mL solution Injector as directed. 15. Plavix 75 mg once daily. She will see me in the next 4-6 weeks in the office. She will most likely need to undergo further intervention to the left superficial femoral artery in the future due to the severe stenosis. The procedures are noted above. She underwent distal aortogram with angioplasty to the right superficial femoral artery and stent placement to the right external iliac. She did have some problems with blood pressure, during the procedure and was given hydralazine. I will continue to monitor her today. Once the sheath is removed, hopefully she will be able to be discharged later today, if she remains stable. Job ID: [id number] GANESH
== END 2019-11-25 21:21 | disposition home or self-care (01) ==
LOC: CCL 05:58
PROVIDERS: ATTEND Internal Medicine Cardiovascular Disease
PROC: 047H3ZZ Dilation of Right External Iliac Artery, Percutaneous Approach (ICD-10-PCS; principal; 2019-11-25)
DX: I70.213 Atherosclerosis of native arteries of extremities with intermittent claudication, bilateral legs (principal); I25.10 Atherosclerotic heart disease of native coronary artery without angina pectoris; I10 Essential (primary) hypertension; E11.9 Type 2 diabetes mellitus without complications; E78.5 Hyperlipidemia, unspecified; F41.9 Anxiety disorder, unspecified; Z79.4 Long term (current) use of insulin; Z79.82 Long term (current) use of aspirin; Z79.899 Other long term (current) drug therapy; Z87.891 Personal history of nicotine dependence; Z88.5 Allergy status to narcotic agent; Z91.041 Radiographic dye allergy status; Z91.048 Other nonmedicinal substance allergy status; Z95.1 Presence of aortocoronary bypass graft
CPT/HCPCS: 37221; 37224; 85347; 99152; 99153; C1769; C1876; C1887; C2623; J0360; J1644; J2001; J2250; J2270; J3010; Q9967

== ENCOUNTER 2020-05-18 11:06 | Outpatient (CLI) | payer OTHER ==
--- NOTE | 2020-05-18 11:56 | RAD ---
THORACIC SPINE 4 VIEWS: HISTORY: Back pain. COMPARISON: Comparison is made to thoracic spine films of 02/08/2017. FINDINGS: Anterior wedge compression deformity involving the T11 vertebra is again seen and does not appear sig nificantly changed. Prominent anterior bridging osteophytes at the T10-T11 disk space again noted. The other thoracic vertebrae maintain height and alignment. Visualized lumbar vertebrae at L1 and L2 are maintained. Mild degenerative osteophytes throughout the thoracic spine. IMPRESSION: Anterior wedge deformity at T11 appears stable. There are degenerative changes throughout the thorac ic spine as described. POS: [facility]
== END 2020-05-18 11:07 | disposition home or self-care (01) ==
LOC: SCSRAD 11:06
PROVIDERS: ATTEND Registered Nurse
DX: M54.6 Pain in thoracic spine (principal); M47.814 Spondylosis without myelopathy or radiculopathy, thoracic region; M43.8X4 Other specified deforming dorsopathies, thoracic region
CPT/HCPCS: 72072